=== PATIENT | female | born 2000 | race Two or more races ===

== ENCOUNTER 2024-04-25 12:21 | Emergency (ER) | payer OTHER ==
[~2024-04-25] VITALS: Ht 162.6 cm; Wt 72.6 kg
[2024-04-25 13:09] VITALS: BP 100/72; O2SAT 99
[2024-04-25 15:08] LABS: HEMATOCRIT 39.3 % (36.0-45.00); HEMOGLOBIN 13.2 g/dL (12.0-15.00); MEAN CORPUSCULAR HGB CONC 33.7 g/dl (32.0-36.0); PLATELET COUNT 148 K/uL (150-450); RED BLOOD COUNT 4.42 M/uL (4.00-6.00); RED CELL DISTRIBUTION WIDTH 13.6 % (11.5-14.5)
== END 2024-04-25 15:53 | disposition home or self-care (01) ==
LOC: ER 12:23
PROVIDERS: General Practice
DX: B34.9 Viral infection, unspecified (principal); Z20.822 Contact with and (suspected) exposure to COVID-19